=== PATIENT | male | born 1995 | race Caucasian/White ===

== ENCOUNTER 2018-07-21 03:18 | Emergency (ER) | payer OTHER ==
--- NOTE | 2018-07-21 03:21 | EDPHY ---
H & P Time Seen by Provider: 07/21/18 03:21 HPI/ROS: Chief Complaint: Alcohol intoxication, vomiting HPI: 22-year-old male who was found at a friend's house intoxicated. Patient passed out after vomiting. Is unable to ambulate on their own. Patient brought in by EMS for further evaluation. No obvious signs of trauma per EMS. Remainder of history is unobtainable secondary to the patient's intoxication. ROS: Unobtainable secondary to the patient's intoxication PMH: Unknown Medications: Unknown Allergies: Unknown Social History: Positive for alcohol Family History: non-contributory Physical Exam: Gen: Somnolent, responds to painful stimuli, maintaining airway, smells of alcohol and emesis HEENT: Atraumatic Nose: no epistaxis or deformity Eyes: PERRLA, EOMI Mouth: Moist mucosa Neck: Supple, no step-offs or deformity Chest: Atraumatic, lungs clear to auscultation Heart: S1, S2 normal, no murmur Abd: Soft, non-tender, no guarding Back: Atraumatic Ext: no edema, atraumatic Skin: no rash Neuro: Sensation grossly intact, Strength 5/5 in bilateral upper and lower extremities (Panfilo Whiteside) Constitutional: Initial Vital Signs Temperature (C) 36.7 C 07/21/18 03:15 Heart Rate 81 07/21/18 03:15 Respiratory Rate 18 07/21/18 03:15 Blood Pressure 116/90 H 07/21/18 03:15 O2 Sat (%) 95 07/21/18 03:15 O2 Delivery Mode Nasal Cannula O2 (L/minute) 2 Allergies/Adverse Reactions: No Known Allergies Allergy (Unverified 07/21/18 03:29) Medical Decision Making ED Course/Re-evaluation: Patient signed out to Dr. Akhtar pending improvement in mental status, ability to ambulate and no further vomiting secondary to their alcohol consumption. ( Panfilo Whiteside) 6:40 a.m.- Patient now awake and alert, able to ambulate with steady gait and appropriate for discharge. He has a sober friend who will pick him up from the emergency department. (Fara Akhtar) Departure - Departure Disposition: Home, Routine, Self-Care Clinical Impression: Alcoholic intoxication Condition: Good Instructions: Alcohol Intoxication (ED) Referrals: Patient,NotPresent [Primary Care Provider] - As per Instructions
[2018-07-21 06:57] VITALS: BP 124/75
== END 2018-07-21 06:57 | disposition home or self-care (01) ==
DX: F10.920 Alcohol use, unspecified with intoxication, uncomplicated (principal); R11.10 Vomiting, unspecified